=== PATIENT | female | born 1985 | race Caucasian/White ===

== ENCOUNTER → 2017-01-23 | Outpatient (REF) | payer OTHER | LOC: M LAB REF 09:35 | PROVIDERS: ATTEND Family Medicine | DX: Z12.4 Encounter for screening for malignant neoplasm of cervix (principal) ==

== ENCOUNTER → 2018-06-06 | Outpatient (REF) | payer OTHER | LOC: M SFHCLERA 13:43 | DX: R35.0 Frequency of micturition (principal) ==

== ENCOUNTER → 2019-03-15 | Outpatient (REF) | payer OTHER | LOC: M LAB REF 17:20 | PROVIDERS: ATTEND Physician Assistant | DX: J06.9 Acute upper respiratory infection, unspecified (principal) ==